=== PATIENT | female | born 2000 | race Caucasian/White ===

== ENCOUNTER 2021-04-04 15:49 | Emergency (ER) | payer OTHER ==
[~2021-04-04] VITALS: Ht 157.5 cm; Wt 43.1 kg
--- NOTE | 2021-04-04 16:00 | NUR ---
To ER bed 17, c/o bilateral flank pain, fever/chills and bodyaches started yesterday. 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
--- NOTE | 2021-04-04 16:14 | NUR ---
SALINE LOCK ESTABLISHED, BLOOD DRAWN, AND SENT TO LAB
[2021-04-04] MEDS ORDERED: ACETAMINOPHEN 325 MG TABLET ONE (16:25)
[2021-04-04] MEDS ORDERED: CEFTRIAXONE 1GM BAG (ER ONLY) 50 ML IV ONE (16:25)
--- NOTE | 2021-04-04 16:30 | NUR ---
URINE COLLECTED AND PICKED UP BY LAB
[2021-04-04] MEDS: ACETAMINOPHEN 325 MG TABLET PO ONE (16:32)
[2021-04-04] MEDS: IV NS 0.9% 1,000 ML BAG IV ONE (16:33)
[2021-04-04] MEDS: CEFTRIAXONE 1GM BAG (ER ONLY) 1 GM/50 ML PIGGYBACK IV ONE (16:34)
[2021-04-04] MEDS: CEFTRIAXONE 1GM BAG (ER ONLY) 50 ML IV ONE (16:48)
[2021-04-04] MEDS: ACETAMINOPHEN ES 500 MG TABLET PO ONE (16:48)
[2021-04-04] MEDS ORDERED: MORPHINE SULFATE INJ 4 MG/ML DISP.SYRIN ONE (16:49)
[2021-04-04] MEDS ORDERED: ONDANSETRON HCL/PF 4 MG/2 ML VIAL ONE (16:49)
[2021-04-04] MEDS: ONDANSETRON HCL/PF 4 MG/2 ML VIAL IVP ONE (17:00)
[2021-04-04] MEDS: MORPHINE SULFATE INJ 2 MG/ML DISP.SYRIN IV ONE (17:02)
[2021-04-04 17:21] LABS: BASOPHILS % (AUTO) 0.1 % (0.0-2.0); HEMATOCRIT 40 % (33-45); HEMOGLOBIN 13.2 g/dL (11.5-14.8); LYMPHOCYTES # (AUTO) 0.6 K/uL (0.8-4.8); LYMPHOCYTES % (AUTO) 3.5 % (20.0-44.0); MEAN CORPUSCULAR HGB CONC 33 g/dl (31.0-36.0); MEAN CORPUSCULAR VOLUME 92 fL (82-100); MONOCYTES # (AUTO) 1.5 K/uL (0.1-1.30); MONOCYTES % (AUTO) 8.8 % (2.0-12.0); NEUTROPHILS # (AUTO) 15.3 K/uL (1.8-8.9); NEUTROPHILS % (AUTO) 87.6 % (43.0-81.0); PLATELET COUNT (AUTO) 179 K/uL (150-450); RED BLOOD CELL COUNT(AUTO) 4.29 MIL/uL (4.0-5.2); WHITE BLOOD COUNT (AUTO) 17.4 K/uL (4.3-11.0)
[2021-04-04 17:41] LABS: BILIRUBIN,URINE SMALL (NEGATIVE); COLOR,URINE YELLOW (YELLOW); LEUKOCYTE ESTERASE ,URINE SMALL (NEGATIVE); NITRITE, URINE NEGATIVE (NEGATIVE); PH,URINE 6.5 (5.0-8.0); PROTEIN,URINE 30 mg/dl (NEGATIVE); UGLUCOSE NEGATIVE (NEGATIVE)
[2021-04-04 18:07] LABS: BACTERIA,URINE 3+ /HPF (None Seen); RBC,URINE 21-50 /HPF (0-2)
[2021-04-04 18:11] LABS: CALCIUM, SERUM 8.7 mg/dL (8.5-10.1); CARBON DIOXIDE 26 mmol/L (21-32); CHLORIDE 100 mmol/L (98-107); GLUCOSE 96 mg/dL (74-106); POTASSIUM 4.3 mmol/L (3.5-5.1); SODIUM SERUM 134 mmol/L (136-145); UREA NITROGEN, BLOOD 16 mg/dL (7-18)
[2021-04-04 18:15] LABS: ALANINE AMINOTRANSFERASE 34 U/L (12-78); ALBUMIN 3.5 g/dL (3.4-5.0); ALKALINE PHOSPHATASE 64 U/L (46-116); ASPARTATE AMINOTRANSFERASE 23 U/L (15-37); BILIRUBIN,DIRECT 0.1 mg/dL (0.0-0.2); BILIRUBIN,TOTAL 0.9 mg/dL (0.2-1.0); TOTAL PROTEIN, SERUM 7.2 g/dL (6.4-8.2)
--- NOTE | 2021-04-04 18:18 | NUR ---
VAGINAL EXAM DONE BY SERGEY REDDING WITH FEMALE RN BENEFITS PROCESSOR
--- NOTE | 2021-04-04 18:19 | NUR ---
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
[2021-04-04] MEDS ORDERED: IV NS 0.9% 250 ML IV ONE (18:25)
[2021-04-04] MEDS ORDERED: IOHEXOL-300 100 ML VIAL IV ONE (18:25)
--- NOTE | 2021-04-04 18:42 | NUR ---
PT RETURNED TO ER BED [address]
[2021-04-04] MEDS ORDERED: CIPR-262 PO (19:22)
--- NOTE | 2021-04-04 19:30 | NUR ---
Patient discharged to home in stable condition. Written and verbal after care instructions given. Patient verbalizes understanding of instruction.IV removed. Catheter intact and site benign. Pressure and 4x4 applied to site. No bleeding noted.
[2021-04-04 19:31] VITALS: BP 117/79
== END 2021-04-04 19:32 | disposition home or self-care (01) ==
LOC: ER 15:52
DX: N12 Tubulo-interstitial nephritis, not specified as acute or chronic (principal); R11.2 Nausea with vomiting, unspecified; Z20.822 Contact with and (suspected) exposure to COVID-19
CPT/HCPCS: 36415; 71045; 74177; 80048; 80076; 81001; 83605; 84145; 84484; 84703; 85025; 85730; 87040 ×2; 87077; 87086; 87186; 87426; 93005; 96361; 96365; 96375; 99285; C9803; J0696; J2270; J2405; J7030; J7040; J7050; Q9967